=== PATIENT | female | born 1980 | race Native Hawaiian/Other Pacific Islander ===

== ENCOUNTER 2018-11-04 14:30 | Emergency (ER) | payer OTHER ==
[~2018-11-04] VITALS: Ht 177.8 cm; Wt 74.8 kg
[2018-11-04 14:38] VITALS: TEMP 97.9
[2018-11-04 15:35] VITALS: BP 136/88
== END 2018-11-04 16:14 | disposition home or self-care (01) ==
LOC: ED 14:30
DX: R51 Headache (principal)
CPT/HCPCS: 99282

== ENCOUNTER 2018-11-12 21:23 | Emergency (ER) | payer OTHER ==
[~2018-11-12] VITALS: Ht 177.8 cm; Wt 74.8 kg
[2018-11-12] MEDS ORDERED: LOSA50TA PO (21:53)
[2018-11-12 23:26] VITALS: BP 149/99; TEMP 97.3
== END 2018-11-12 23:27 | disposition home or self-care (01) ==
LOC: ED 21:23
DX: N34.2 Other urethritis (principal); R30.0 Dysuria
CPT/HCPCS: 81000; 96372; 99284; J1885

== ENCOUNTER 2019-08-12 10:06 | Outpatient (CLI) | payer OTHER ==
[~2019-08-12 10:06] MED LIST: LOSA50TA PO
[2019-08-12 10:38] LABS: PLATELET COUNT 311 K/uL (152-353)
[2019-08-12 10:54] LABS: POTASSIUM 4.1 mmol/L (3.6-5.2)
== END 2019-08-12 19:10 | disposition home or self-care (01) ==
LOC: LABW 10:06
PROVIDERS: Nurse Practitioner Adult Health
DX: I10 Essential (primary) hypertension (principal)
CPT/HCPCS: 36415; 80053; 80061; 82306; 83036; 84443; 85027